=== PATIENT | female | born 1990 | race Two or more races ===

== ENCOUNTER → 2022-06-18 | Outpatient (CLI) | payer BC ==
[2022-06-18 15:25] LABS: Basophils # (A) 0.07 X 10*3/uL (0.00-0.10); Basophils % (A) 0.7 %; Eosinophils # (A) 0.14 X 10*3/uL (0.04-0.35); Eosinophils % (A) 1.4 %; HGB 12.5 g/dL (12.0-15.0); Immature Grans, Automated 1.3 %; Lymphocytes # (A) 3.25 X 10*3/uL (0.90-5.00); Lymphocytes % (A) 33.5 %; MCH 27.9 pg (27.0-32.0); MCHC 31.3 g/dL (32.0-37.0); MCV 89.3 fL (80.0-97.0); Mean Platelet Volume 11.1 fL (9.5-12.2); Monocytes # (A) 0.55 X 10*3/uL (0.20-1.00); Monocytes % (A) 5.7 %; NRBC Per 100 WBC 0 /100 WBCS (0.0-0.0); Neutrophils # (A) 5.57 X 10*3/uL (1.80-7.70); Neutrophils % (A) 57.4 %; Platelet Count 333 X 10*3/uL (140-440); RBC 4.48 X 10*6/uL (4.10-5.20); RDW 13.2 % (11.5-14.5); WBC 9.71 X 10*3/uL (4.50-10.00)
[2022-06-18 16:31] LABS: ALT 18 U/L (8-44); AST 13 U/L (13-35); African American GFR (CKD) 123.5 (60.0-200.0); Albumin 4.4 g/dL (3.8-4.9); Albumin/Globulin Ratio 1.45 (1.60-3.17); Alkaline Phosphatase 99 U/L (41-126); BUN/Creat Ratio 15.37 Ratio (12.00-20.00); Blood Urea Nitrogen 11.5 mg/dL (9.0-27.0); Calcium 9.8 mg/dL (8.7-10.3); Chloride 104 mmol/L (96-109); Chol/HDL Ratio 3.98 Ratio; Glucose 98 mg/dL (70-110); LDL Cholesterol,Calculated 119.2 mg/dL (0.0-131.0); Non-African American GFR(CKD) 106.6 (60.0-200.0); Potassium 4.5 mmol/L (3.5-5.5); Sodium 142 mmol/L (135-145); Total Protein 7.4 g/dL (6.2-8.2)
== END | disposition home or self-care (01) ==
LOC: LABWHC1 08:04
PROVIDERS: ATTEND Family Medicine
DX: R73.01 Impaired fasting glucose (principal); F41.9 Anxiety disorder, unspecified
CPT/HCPCS: 36415; 80053; 80061; 82306; 83036; 84443; 85025

== ENCOUNTER → 2024-06-15 | Outpatient (CLI) | payer BC ==
--- NOTE | 2024-06-15 10:38 | XR ---
EXAMINATION TYPE: XR shoulder complete LT DATE OF EXAM: 06/15/2024 10:33 AM COMPARISON: None CLINICAL INDICATION: Female, 33 years old with history of M25.512 PAIN IN LEFT SHOULDER; PHH, pain TECHNIQUE: 4 views FINDINGS: AC joint appears congruent and intact. Subacromial space is preserved. No tendinous or bursal calcifi cations. Smooth delineation of the greater tuberosity. No acute fracture, subluxation, dislocation is seen. IMPRESSION: No acute osseous abnormality seen. [facility], , 06/15/2024 10:36 AM
== END | disposition home or self-care (01) ==
LOC: RADXRMAIN 10:14
PROVIDERS: ATTEND Family Medicine
DX: M25.512 Pain in left shoulder (principal); M25.312 Other instability, left shoulder